=== PATIENT | male | born 1980 | race Caucasian/White ===

== ENCOUNTER → 2023-07-22 20:27 | Outpatient (REF) | payer BC, SELFPAY | LOC: MRI 3T 20:27 | PROVIDERS: ATTENDING PHYSICIAN Family Medicine | DX: R51.9 Headache, unspecified (principal) | CPT/HCPCS: 70553; A9575 ==

== ENCOUNTER → 2023-09-20 17:34 | Outpatient (REF) | payer BC, SELFPAY | LOC: MRI 17:34 | PROVIDERS: FAMILY PHYSICIAN Family Medicine | DX: R90.82 White matter disease, unspecified (principal) | CPT/HCPCS: 72156; 72157; A9575 ==

== ENCOUNTER → 2024-02-06 17:39 | Outpatient (REF) | payer BC, SELFPAY | LOC: MRI 3T 17:39 | PROVIDERS: ATTENDING PHYSICIAN Psychiatry & Neurology Epilepsy; FAMILY PHYSICIAN Family Medicine | DX: R90.82 White matter disease, unspecified (principal) | CPT/HCPCS: 70553; A9575 ==

== ENCOUNTER → 2024-06-26 12:09 | Outpatient (REF) | payer BC, SELFPAY | LOC: MRI 3T 12:09 | PROVIDERS: ATTENDING PHYSICIAN Colon & Rectal Surgery; FAMILY PHYSICIAN Family Medicine | DX: K60.30 Anal fistula, unspecified (principal) | CPT/HCPCS: 72197; A9575 ==

== ENCOUNTER → 2025-01-24 19:04 | Outpatient (REF) | payer BC, SELFPAY | LOC: MRI 3T 19:04 | PROVIDERS: ATTENDING PHYSICIAN Psychiatry & Neurology Neurology; FAMILY PHYSICIAN Family Medicine | DX: G35.D Multiple sclerosis, unspecified (principal) | CPT/HCPCS: 70553; A9575 ==